=== PATIENT | male | born 1950 | race African-American/Black ===

== ENCOUNTER 2021-05-29 18:55 | Inpatient (IN) | payer MEDICARE ==
[~2021-05-29] VITALS: Ht 172.7 cm; Wt 61.4 kg
[2021-05-29 18:57] VITALS: BP 165/71
[2021-05-29 23:26] LABS: ABSOLUTE NEUTROPHILS 4.4 thou/uL (1.4-8.2); BASOPHILS 1.2 % (0.0-2.0); EOSINOPHILS 0.2 % (0.0-3.0); HEMATOCRIT 29.1 % (42.0-52.0); HEMOGLOBIN 9.4 gm/dL (14.0-18.0); LYMPHOCYTES 4.3 % (24.0-44.0); MCH 29.8 pg (26.0-34.0); MCHC 32.4 g/dL (28.0-37.0); MCV 91.8 fL (80.0-100.0); MONOCYTES 3.9 % (1.0-8.0); PLATELET COUNT 168 thou/uL (150-400); POLYS 90.4 % (36.0-66.0); RBC 3.16 mil/uL (4.50-6.00); RDW 14.2 % (10.5-14.5); WBC 4.9 thou/uL (4.0-11.0)
[2021-05-29 23:34] LABS: CALCIUM 7.6 mg/dL (8.5-10.1); CREATININE 4.7 mg/dL (0.7-1.3); POTASSIUM 4.6 mmol/L (3.5-5.1)
[2021-05-29 23:43] LABS: ALBUMIN 2.7 g/dL (3.4-5.0); TOTAL BILIRUBIN 0.3 mg/dL (0.2-1.0)
[2021-05-30] VITALS (30 sets, daily range): BP systolic 169–211; BP diastolic 85–111
[2021-05-30 00:27] LABS: URINE BILIRUBIN NEGATIVE (Negative); URINE BLOOD 1+ (Negative); URINE CLARITY CLEAR; URINE COLOR YELLOW; URINE GLUCOSE-RANDOM* 1+ (Negative); URINE KETONES NEGATIVE (Negative); URINE LEUKOCYTES-REFLEX NEGATIVE (Negative); URINE NITRITE-REFLEX NEGATIVE (Negative); URINE PROTEIN (DIPSTICK) 2+ (Negative); URINE SPECIFIC GRAVITY 1.025 (1.005-1.035); URINE UROBILINOGEN 0.2 E.U./dl (0.2-1.0)
[2021-05-30 02:08] LABS: BACTERIA-REFLEX 1-9 Few /HPF (None Seen); CELLULAR CASTS 0-3 Few /LPF (None Seen); CRYSTALS None Seen /LPF (None Seen); HYALINE CASTS 0-3 Few /LPF (None Seen); MUCUS 0-3 Light strn/LPF (None Seen); SQUAMOUS 4-10 Moderate /LPF (0-3); URINE RBC 3-10 Few /HPF (NONE SEEN); URINE WBC-REFLEX 0-5 Rare /HPF (0-5)
--- NOTE | 2021-05-30 07:44 | EKG ---
[address] [employer] [place] [address] ELECTROCARDIOGRAM REPORT Name: MARIXA JEAN-BAPTISTE Hollie Room #: REG [facility]#: [id number] Admission: 05/29/21 Attend Phys: Discharge: Date of : 48 Report #: [id number] [facility] ED Test Date: 2021-05-29 Test Time: 23:29:39 Pat Name: MARIXA JEAN-BAPTISTE Department: Room: Gender: M Tester Operator Helper: christelle anthony : 1950 Requested By: Hanna Giles Order Number: [id number] MD: Anthony Cisse Measurements Intervals Ruth Rate: 79 P: 51 CA: 139 QRS: -12 QRSD: 90 T: 91 QT: 363 QTc: 417 Interpretive Statements Sinus rhythm Posterior infarct, old Nonspecific T abnormalities, lateral leads No previous ECG available for comparison Electronically Signed On 05-30-2021 7:44:27 VETERINARY DENTIST by Anthony Cisse [email or web address] <ELECTRONICALLY SIGNED> By: Anthony Cisse MD, [facility] 05/30/21 0744 [id number] Anthony Cisse MD, FACC /EPI
--- NOTE | 2021-05-30 17:37 | NUR ---
PT ARRIVED FROM THE ED AT 1715 HE ARRIVED WITH DRY STOOL ON HIS BACKSIDE AND HE WAS SOAKED IN URINE, SHAKING AND COLD. PT CAN ONLY TELL ME HIS NAME AND DATE OF AND THAT HE IS COLD.
--- NOTE | 2021-05-30 22:43 | NUR ---
ASSUMED CARE OF PT AT 1900. PT DROWSY. PT SLOW TO RESPOND. ABLE TO IDENTIFY SELF. FOLLOWS SIMPLE COMMANDS. DENIES ANY PAIN. CONCRETE PAVING SUPERVISOR CALLED AT 2229 AFTER DOSE OF LABETALOL GIVEN AT 2120 NO EFFECTIVE. ORDER TO GIVE AN ADDITIONAL DOSE GIVEN AT THAT TIME. WILL CONTINUE TO MONITOR.
[2021-05-31] VITALS (58 sets, daily range): BP systolic 149–213; BP diastolic 74–103
[2021-05-31 03:24] LABS: ABSOLUTE NEUTROPHILS 4.3 thou/uL (1.4-8.2); BASOPHILS 0.1 % (0.0-2.0); HEMOGLOBIN 9.8 gm/dL (14.0-18.0); LYMPHOCYTES 7.2 % (24.0-44.0); MCHC 32.8 g/dL (28.0-37.0); MCV 91.5 fL (80.0-100.0); MONOCYTES 1.1 % (1.0-8.0); PLATELET COUNT 208 thou/uL (150-400); POLYS 91.6 % (36.0-66.0); RBC 3.28 mil/uL (4.50-6.00); RDW 14.2 % (10.5-14.5); WBC 4.7 thou/uL (4.0-11.0)
[2021-05-31 03:34] LABS: CALCIUM 8.6 mg/dL (8.5-10.1); CREATININE 4.9 mg/dL (0.7-1.3); MAGNESIUM 2.9 mg/dL (1.8-2.4); POTASSIUM 4.6 mmol/L (3.5-5.1)
--- NOTE | 2021-05-31 10:39 | HC ---
[facility] [place] [address] CONSULTATION Name: ANIMARIXA Hollie Room #: 244-P ADM IN M.R.#: [id number] Admission: 05/30/21 Attend Phys: Alisha Patterson Discharge: Date of : 48 Report #: [id number] THIS REPORT FOR: cc: Mathew Franklin MD, John R. MD McKittrick, Richard James MD ~ DATE OF SERVICE: 05/29/2021 I was asked by one of the ER physicians to consult on this patient, but the order has not yet been entered. I do not have access to type-in in [employer]. HISTORY OF PRESENT ILLNESS: The patient is a 71-year-old gentleman from the [place] area who per the chart was described by his family members as being spaced out when he had infection before and was having some symptoms of the same. They prescribed an antibiotic for possible UTI, which was Keflex b.i.d. and the patient probably had been doing better. He also had a COVID booster a day or two ago with Moderna. Today, he seemed much more quiet. He was able to feed himself and in the afternoon woke up and was not talking, not able to feed himself. His brought him to the Emergency Room. Here, a CAT scan raises the question of a possible brain metastasis. The patient is interviewed in the hallway of the Emergency Room. He is able to tell me his name. He seems very sleepy. At first, he seemed to have trouble opening one eye, but then after I asked to open both eyes, he did so clearly. Also, one time, he appeared to have almost some tongue movement to the right where he would not talk to me and then seen unable to be conversant for, but then was able to talk and answer questions again. I am not sure if that was a seizure or if he was just inattentive or tired. The patient denied any specific pain at this time, any nausea or vomiting, or shortness of air, skin rash or bleeding, but he is a very questionable historian at this time due to his fatigue and altered mental status. His lab results show a creatinine of 4.7, which I am not sure if that is new or not as I did not see any mention of that in the chart. Glucose is 186. Sodium and electrolytes are normal. Alkaline phosphatase 39. Magnesium 1.1, which is low. Albumin 2.7. Troponin 122. ProBNP 1486. White count 4.9, hemoglobin 9.4, platelets 168, MCV 91.8. Influenza negative. COVID negative. UA had squamous cells, has a few bacteria. Imaging thus far has included a CT head without contrast, raised the question of sulcal effacement and mass effect involving the posterior left parietal and left temporal lobes with more discrete focal low density foci within this region with surrounding low attenuation suggesting potential parenchymal mass lesion and surrounding vasogenic edema. They suggested an MRI. Note that, that is pending. The patient also had a chest x-ray that showed no acute cardiopulmonary abnormalities. PHYSICAL EXAMINATION: VITAL SIGNS: The patient's height is 5 feet 8 inches or 172.7 cm. Weight [address] [address] CONSULTATION Name: MARIXA LAW Room #: 244-P ADM IN M.R.#: [id number] Admission: 05/30/21 Attend Phys: Alisha Patterson Discharge: Date of : 48 Report #: [id number] pounds or 65.8 kilograms. Blood pressure is 169/81, O2 saturation 99%, pulse 84, temperature 97.8. GENERAL: The patient is able to answer simple questions. He is able to squeeze my hand and move his feet, but he almost persevered and went to squeeze my hand again and again and again after we had, had him put his hand back down. LYMPHATICS: No enlarged lymph nodes on exam. LUNGS: Clear. HEART: Regular rate. ABDOMEN: Without masses, nontender. EXTREMITIES: Without clubbing, cyanosis, or edema. ASSESSMENT AND PLAN: 1. Question of CT scan disease. Agree with plans for MRI head. Multiple hospitals around [facility], unable to take patient at this time. I think once we figure out whether he actually needs Neurosurgery with an MRI we could then make a better argument for transfer. At this point, we can do the workup. If he is indeed found to have a mass effect, we may need to do a CAT scan chest, abdomen, and pelvis to look for possible primary source and biopsy of that area. At this time, agree with steroids and Raheel. 2. Questionable unintentional movement disorder during exam, not sure if the patient had seizure or not, agree with Raheel, may need to consider consult with Neurology. 3. Renal insufficiency. Supposedly the patient had creatinine of 3.5 in 12/2019, but now it is 4.7. We will defer whether Renal should see this patient. 4. History of hypertension. Continue medications as needed. 5. History of stroke in 2010, unclear baseline, but it sounds like this is quite different for him. We will follow with you. 6. Anemia, may be related to chronic kidney disease. We will need to clarify whether the patient has been on erythropoietin. Also, may consider checking B12, folate, and iron. <ELECTRONICALLY SIGNED> By: Juan Manuel Madden MD 05/31/21 1039 0737 0814 Juan Manuel Madden MD /nt
--- NOTE | 2021-05-31 17:12 | NUR ---
0730-ASSUMED CARE OF PT.--VW 0830- IN.D/W HIM WORSENING BREATHING PATTERN,CHANGE IN OVERALL MENTATION & REFLEX'S. CALL TO [facility] TO CK ON TRANSFER TO ANOTHER FACILITY B/.--VW 0930-PT W SUDDEN DROP IN RESP'S, FROM 9-10 TO 3-4. CALL TO ,HE CAME IN & INTUBATED PT W/O DIFF.PCXR DONE--VW 1000- IN. AT BEDSIDE. HE SPOKE AT LENGTH W HER.--VW 1100-TO CART SCAN FULLY MONITORED.--VW [id number] FROM CT SCAN. SPOKE W ST YARELY AVILES' COORDINATOR RE:TRANSFER OF PT.PAPERS FAXED REQ'D.--VW 1300-CENTRAL LINE PLACED EARLIER.PCXR DONE.EEG HERE, [place]. [facility] HAS AGREED TO ACCEPT PT. EEG NOT DONE D/T TRANSFER.--VW 1325-REPORT CALLED TO JUANCHO, NEURO PHYSICAL THERAPY AIDES TEACHER.--VW 1515-LOTS OF DIFF OBTAINING TRANSPORT FOR PT EMERGENTLY TO [place] ([facility] UNABLE TO TRANSPORT AT THIS TIME).CARE TURNED OVER TO BEATRI[facility] ([facility]) LT. FULL ACLS & VENT SUPPORT. BELONGINGS W PT (AR OF SOCKS, ONE SILVER COLORED [place] BAND ENGRAVED W CROSSES) LT RING FINGER.JUANCHO UPDATED. JANEY UPDATED.--VW
== END 2021-05-31 15:15 | DRG 70 ==
LOC: ER 18:55 → EROBS 05-30 12:50 → ICU 05-30 16:34
PROVIDERS: Emergency Medicine; Nurse Practitioner; ADMIT Hospitalist; ATTEND Hospitalist
PROC: 0BH17EZ Insertion of Endotracheal Airway into Trachea, Via Natural or Artificial Opening (ICD-10-PCS; principal; 2021-05-31)
PROC: 02HV33Z Insertion of Infusion Device into Superior Vena Cava, Percutaneous Approach (ICD-10-PCS; 2021-05-31)
DX: G93.89 Other specified disorders of brain (principal); G93.41 Metabolic encephalopathy; E43 Unspecified severe protein-calorie malnutrition; N17.9 Acute kidney failure, unspecified; C79.31 Secondary malignant neoplasm of brain; I16.0 Hypertensive urgency; E83.42 Hypomagnesemia; E86.0 Dehydration; Z86.73 Personal history of transient ischemic attack (TIA), and cerebral infarction without residual deficits; I10 Essential (primary) hypertension; D64.9 Anemia, unspecified; Z20.822 Contact with and (suspected) exposure to COVID-19
CPT/HCPCS: 10078